=== PATIENT | female | born 1965 | race Caucasian/White ===

== ENCOUNTER 2022-09-18 12:47 | Observation (INO) | payer BC, MEDICAID, OTHER ==
[~2022-09-18] VITALS: Ht 172.7 cm; Wt 94.2 kg
[2022-09-18 13:43] LABS: BASO # 0.1 10^3/uL (0.0-0.2); BASO % 0.8 % (0.0-1.0); EOS # 0.1 10^3/uL (0.0-0.5); EOS % 0.9 % (0.0-3.0); HEMATOCRIT 38.6 % (36.0-47.0); HEMOGLOBIN 12.8 g/dl (12.0-15.5); LYMPH # 3.8 10^3/uL (1.5-5.0); LYMPH % 32.8 % (24.0-44.0); MEAN CORPUSCULAR HGB CONC 33.2 g/dl (32.0-36.5); MEAN CORPUSCULAR VOLUME 84.5 fl (80.0-96.0); MONO # 0.6 10^3/uL (0.0-0.8); MONO % 5.5 % (2.0-8.0); NEUTROPHILS # 6.9 10^3/uL (1.5-8.5); NEUTROPHILS % 59.7 % (36.0-66.0); RED BLOOD COUNT 4.57 10^6/uL (4.00-5.40); WHITE BLOOD COUNT 11.6 10^3/uL (4.0-10.0)
[2022-09-18] MEDS ORDERED: ISOVUE-370 76% 100ML VIAL As Ordered ONE (13:46)
[2022-09-18 13:53] LABS: INR 0.9; PROTHROMBIN TIME 12.3 SECONDS (12.5-14.5)
[2022-09-18] MEDS ORDERED: ASPIRIN 81MG CHEW TABLET PO ONE (14:25)
[2022-09-18] MEDS ORDERED: ATORVASTATIN 20 MG TAB PO ONE (14:25)
[2022-09-18] MEDS ORDERED: NS 1,000 ML IV ONE (14:25)
[2022-09-18] MEDS ORDERED: ATOR1TAB21 PO (15:00)
[2022-09-18] MEDS ORDERED: ASPI81TA26 PO (15:00)
[2022-09-18] MEDS ORDERED: HOME MED LIST COMPLETE! XX SCH (15:00)
[2022-09-18] MEDS ORDERED: METO1TAB87 PO (15:00)
[2022-09-18] MEDS ORDERED: CLOPIDOGREL 75 MG TAB PO ONE (16:05)
[2022-09-18 17:23] VITALS: BP 158/80; TEMP 97.4; O2SAT 100
[2022-09-18] MEDS: NS 1,000 ML IV SCH (17:47)
[2022-09-18 19:04] LABS: ALBUMIN 3.8 G/DL (3.2-5.2); ALKALINE PHOSPHATASE 103 U/L (46-116); ALT/SGPT 21 U/L (7.0-40); AST/SGOT 16 U/L (<34); BILIRUBIN,DIRECT 0.2 MG/DL (<0.4); BILIRUBIN,TOTAL 0.5 MG/DL (0.3-1.2); BLOOD UREA NITROGEN 11 MG/DL (9-23); CALCIUM LEVEL 8.7 MG/DL (8.5-10.1); CARBON DIOXIDE LEVEL 25 MMOL/L (20-31); CHLORIDE LEVEL 105 MMOL/L (98-107); CREATININE FOR GFR 0.63 MG/DL (0.55-1.30); GLOMERULAR FILTRATION RATE > 60.0 (>51); GLUCOSE, FASTING 94 MG/DL (60-100); POTASSIUM SERUM 4.1 MMOL/L (3.5-5.1); SODIUM LEVEL 138 MMOL/L (136-145); TOTAL PROTEIN 6.8 G/DL (5.7-8.2)
[2022-09-18 19:06] LABS: VITAMIN B12 LEVEL 352 PG/ML (211-911)
[2022-09-18 19:27] LABS: FOLATE 22.89 NG/ML (>5.4)
[2022-09-18] MEDS ORDERED: METOPROLOL TART 12.5 MG PER 1/2 TAB PO PRN (20:30)
[2022-09-18] MEDS ORDERED: OMEPRAZOLE 20MG CAP PO SCH (21:00)
[2022-09-18 21:05] VITALS: BP 153/72; TEMP 97.8; O2SAT 98
[2022-09-18] MEDS: PANTOPRAZOLE 20 MG TAB PO SCH (21:07)
[2022-09-18] MEDS: RAMELTEON 8 MG TAB (ROZEREM) PO PRN (22:10)
[2022-09-18 23:24] LABS: AMPHETAMINES LEVEL URINE NEGATIVE (NEGATIVE); BARBITURATES URINE NEGATIVE (NEGATIVE); BENZODIAZEPINES URINE NEGATIVE (NEGATIVE); COCAINE METABOLITE URINE NEGATIVE (NEGATIVE); METHADONE URINE NEGATIVE (NEGATIVE); OPIATES URINE NEGATIVE (NEGATIVE); PHENCYCLIDINE URINE NEGATIVE (NEGATIVE)
[2022-09-18 23:28] LABS: CANNABINOIDS URINE POSITIVE (NEGATIVE)
[2022-09-19 01:06] VITALS: BP 122/60; TEMP 96.9; O2SAT 95
[2022-09-19] MEDS: NS 1,000 ML IV SCH ×2 (01:36→07:19)
[2022-09-19 03:05] LABS: BLOOD UREA NITROGEN 10 MG/DL (9-23); CALCIUM LEVEL 8.6 MG/DL (8.5-10.1); CARBON DIOXIDE LEVEL 25 MMOL/L (20-31); CHLORIDE LEVEL 112 MMOL/L (98-107); CREATININE FOR GFR 0.63 MG/DL (0.55-1.30); GLOMERULAR FILTRATION RATE > 60.0 (>51); GLUCOSE, FASTING 93 MG/DL (60-100); POTASSIUM SERUM 3.9 MMOL/L (3.5-5.1); SODIUM LEVEL 142 MMOL/L (136-145)
[2022-09-19 04:00] VITALS: BP 126/74; TEMP 96.8; O2SAT 98
[2022-09-19 06:28] LABS: HEMATOCRIT 35.1 % (36.0-47.0); HEMOGLOBIN 11.3 g/dl (12.0-15.5); MEAN CORPUSCULAR HEMOGLOBIN 28.1 pg (27.0-33.0); MEAN CORPUSCULAR HGB CONC 32.2 g/dl (32.0-36.5); MEAN CORPUSCULAR VOLUME 87.3 fl (80.0-96.0); PLATELET COUNT, AUTOMATED 221 10^3/uL (150-450); RED BLOOD COUNT 4.02 10^6/uL (4.00-5.40); WHITE BLOOD COUNT 9.9 10^3/uL (4.0-10.0)
[2022-09-19 06:41] LABS: INR 0.97; PROTHROMBIN TIME 13.1 SECONDS (12.5-14.5)
[2022-09-19 06:56] LABS: CHOLESTEROL LEVEL 126 MG/DL (<200); CHOLESTEROL RISK RATIO 2.52 (<5); LDL CHOLESTEROL 64.2 MG/DL (<100); TRIGLYCERIDES LEVEL 59 MG/DL (<150)
[2022-09-19 07:42] LABS: BLOOD UREA NITROGEN 9 MG/DL (9-23); CALCIUM LEVEL 8.5 MG/DL (8.5-10.1); CARBON DIOXIDE LEVEL 25 MMOL/L (20-31); CHLORIDE LEVEL 112 MMOL/L (98-107); CREATININE FOR GFR 0.64 MG/DL (0.55-1.30); GLOMERULAR FILTRATION RATE > 60.0 (>51); GLUCOSE, FASTING 80 MG/DL (60-100); POTASSIUM SERUM 4.1 MMOL/L (3.5-5.1); SODIUM LEVEL 143 MMOL/L (136-145)
[2022-09-19 08:04] VITALS: BP 143/69; TEMP 97.1; O2SAT 98
[2022-09-19] MEDS: ASPIRIN 81MG CHEW TABLET PO SCH (08:58)
[2022-09-19] MEDS: CLOPIDOGREL 75 MG TAB PO SCH (08:58)
[2022-09-19 11:36] VITALS: BP 145/71; TEMP 97.7; O2SAT 95
[2022-09-19 15:33] LABS: BLOOD UREA NITROGEN 10 MG/DL (9-23); CALCIUM LEVEL 8.4 MG/DL (8.5-10.1); CARBON DIOXIDE LEVEL 26 MMOL/L (20-31); CHLORIDE LEVEL 113 MMOL/L (98-107); CREATININE FOR GFR 0.63 MG/DL (0.55-1.30); GLOMERULAR FILTRATION RATE > 60.0 (>51); GLUCOSE, FASTING 116 MG/DL (60-100); POTASSIUM SERUM 4.1 MMOL/L (3.5-5.1); SODIUM LEVEL 145 MMOL/L (136-145)
[2022-09-19 15:38] VITALS: BP 138/65; TEMP 97.6; O2SAT 97
[2022-09-19] MEDS ORDERED: METO25TA4 PO (17:49)
[2022-09-19] MEDS ORDERED: CLOP75TA2 PO (17:49)
[2022-09-19] MEDS ORDERED: PROT20TA11 PO (17:51)
[2022-09-19] MEDS ORDERED: LIPI80TA PO (17:51)
[2022-09-19] MEDS ORDERED: SELF1KIT MC (18:06)
[2022-09-19 20:00] VITALS: BP 143/82; TEMP 96.4; O2SAT 94
[2022-09-19] MEDS: PANTOPRAZOLE 20 MG TAB PO SCH (20:57)
[2022-09-19] MEDS: RAMELTEON 8 MG TAB (ROZEREM) PO PRN (20:58)
[2022-09-20] VITALS (8 sets, daily range): BP systolic 130–179; BP diastolic 68–100; TEMP 97–97.2; O2SAT 97–100
[2022-09-20] MEDS ORDERED: METOPROLOL TART 25 MG TABLET PO ONE (08:00)
[2022-09-20] MEDS: CLOPIDOGREL 75 MG TAB PO SCH (08:06)
[2022-09-20] MEDS: ASPIRIN 81MG CHEW TABLET PO SCH (08:06)
[2022-09-20] MEDS ORDERED: XANA0.25 PO (09:22)
[2022-09-20] MEDS ORDERED: ISOSORBIDE DIN (ISORDIL) 10MG TAB PO SCH (12:00)
[2022-09-20] MEDS ORDERED: AMLO10TA PO (12:53)
[2022-09-20] MEDS ORDERED: ISOS10TA9 PO (13:48)
[2022-09-20] MEDS ORDERED: HYDR-3363 PO (13:50)
[2022-09-20] MEDS ORDERED: cloNIDine 0.1MG TABLET PO ONE (14:00)
[2022-09-20] MEDS ORDERED: METOPROLOL TART 25 MG TABLET PO SCH (21:00)
[2022-09-21 12:08] LABS: ANTINUCLEAR ANTIBODIES DIRECT Negative (Negative)
[2022-09-24 09:16] LABS: DRVV SCREEN 40.4 SEC
[2022-09-24 09:32] LABS: PTT LUPUS TYPE ANTICOAG SCREEN 1.1 (0-1.2)
[2022-09-27 19:06] LABS: ANCA-ATYPICAL <1:20 titer (Neg:<1:20); ANTI THROMBIN 3 ANTIGEN IMMUNO 73 % (72-124); ANTI THROMBIN 3 FUNCT ACTIVITY 88 % (75-135); ANTINUCLEAR ANTIBODIES DIRECT Negative (Negative); CARDIOLIPIN IGA ANTIBODY <9 APL U/mL (0-11); CARDIOLIPIN IGG ANTIBODY <9 GPL U/mL (0-14); CARDIOLIPIN IGM ANTIBODY <9 MPL U/mL (0-12); CYTOPLASMIC NEUTROP AB ANCA-C <1:20 titer (Neg:<1:20); F8 ACTIVITY FOR F8 PANEL 139 % (56-140); F8 ACTIVITY vWB FOR F8 PANEL 153 % (50-200); F8 ANTIGEN FOR F8 PANEL 195 % (50-200); HOMOCYST(E)INE SERUM 6.5 umol/L (0.0-14.5); PERINUCLEAR AB ANCA-P <1:20 titer (Neg:<1:20); PROTEIN C ANTIGEN 86 % (60-150); PROTEIN S ANTIGEN FREE 95 % (61-136); PROTEIN S ANTIGEN TOTAL 104 % (60-150); SJOGREN'S ANTI SS-A <0.2 AI (0.0-0.9); SJOGREN'S ANTI SS-B <0.2 AI (0.0-0.9)
== END 2022-09-20 16:38 | disposition home or self-care (01) ==
LOC: M ED 12:47 → M ED INP 12:48 → UNDOADMOB 14:46 → M ED INP 14:46 → INTOOBSV 14:46 → ENRESERV 15:33 → M PCU 17:27 → M ED INP 17:27 → M PCU 17:27
PROVIDERS: ADMIT General Practice; ATTEND General Practice
DX: I63.421 Cerebral infarction due to embolism of right anterior cerebral artery (principal); I10 Essential (primary) hypertension; E78.5 Hyperlipidemia, unspecified; Z91.199 Patient's noncompliance with other medical treatment and regimen due to unspecified reason; Z86.73 Personal history of transient ischemic attack (TIA), and cerebral infarction without residual deficits; I36.1 Nonrheumatic tricuspid (valve) insufficiency; F41.9 Anxiety disorder, unspecified; I27.0 Primary pulmonary hypertension; Z79.82 Long term (current) use of aspirin; Z79.899 Other long term (current) drug therapy
CPT/HCPCS: 36415; 70450; 70496; 70498; 70544; 70551; 71045; 80047; 80048; 80061; 80076; 80307; 81002; 81240; 82607; 82746; 83090; 85025; 85027; 85240; 85245; 85246; 85300; 85301; 85302; 85305; 85306; 85610; 85652; 85730; 86037; 86038; 86147; 86431; 87635; 93005; 93041; 93306; 94760; 96361; 96374; 97161; 99285; Q9967

== ENCOUNTER 2022-10-11 14:20 | Emergency (ER) | payer OTHER ==
[~2022-10-11] VITALS: Ht 172.7 cm; Wt 85.3 kg
[~2022-10-11 14:20] MED LIST: AMLO10TA PO; ASPI81TA26 PO; ATOR1TAB21 PO; CLOP75TA2 PO; HYDR-3363 PO; ISOS10TA9 PO; LIPI80TA PO; METO1TAB87 PO; METO25TA4 PO; PROT20TA11 PO; SELF1KIT MC; XANA0.25 PO
[2022-10-11 14:50] LABS: BASO # 0.1 10^3/uL (0.0-0.2); BASO % 0.8 % (0.0-1.0); EOS # 0.1 10^3/uL (0.0-0.5); EOS % 1.5 % (0.0-3.0); HEMATOCRIT 41.6 % (36.0-47.0); HEMOGLOBIN 13.6 g/dl (12.0-15.5); LYMPH # 2.9 10^3/uL (1.5-5.0); LYMPH % 31.1 % (24.0-44.0); MEAN CORPUSCULAR HEMOGLOBIN 28.2 pg (27.0-33.0); MEAN CORPUSCULAR HGB CONC 32.7 g/dl (32.0-36.5); MEAN CORPUSCULAR VOLUME 86.1 fl (80.0-96.0); MONO # 0.6 10^3/uL (0.0-0.8); MONO % 6.1 % (2.0-8.0); NEUTROPHILS # 5.7 10^3/uL (1.5-8.5); NEUTROPHILS % 60.3 % (36.0-66.0); PLATELET COUNT, AUTOMATED 241 10^3/uL (150-450); RED BLOOD COUNT 4.83 10^6/uL (4.00-5.40); WHITE BLOOD COUNT 9.4 10^3/uL (4.0-10.0)
[2022-10-11 15:24] LABS: CK-MB VALUE MASS 1.4 NG/ML (<3.6)
[2022-10-11 15:25] LABS: BLOOD UREA NITROGEN 11 MG/DL (9-23); CALCIUM LEVEL 9.3 MG/DL (8.5-10.1); CARBON DIOXIDE LEVEL 32 MMOL/L (20-31); CHLORIDE LEVEL 106 MMOL/L (98-107); CPK CREATINE PHOSPHOKINASE 164 U/L (34-145); CREATININE FOR GFR 0.72 MG/DL (0.55-1.30); GLOMERULAR FILTRATION RATE > 60.0 (>51); GLUCOSE, FASTING 107 MG/DL (60-100); MB/CK RELATIVE INDEX 0.85 (< OR =4); POTASSIUM SERUM 4.1 MMOL/L (3.5-5.1); SODIUM LEVEL 143 MMOL/L (136-145)
[2022-10-11 19:50] LABS: INR 0.95; PROTHROMBIN TIME 12.9 SECONDS (12.5-14.5)
[2022-10-11 19:51] LABS: PARTIAL THROMBOPLASTIN TIME 27.5 SECONDS (24.8-34.2)
[2022-10-11 19:53] LABS: D-DIMER QUANT 369.18 ng/ml (<500)
[2022-10-11 20:08] LABS: MB/CK RELATIVE INDEX 0.75 (< OR =4)
[2022-10-11 20:10] LABS: FREE T4 1.23 NG/DL (0.89-1.76); THYROID STIMULATING HORMONE 1.324 uIU/ML (0.55-4.78)
[2022-10-11 21:32] VITALS: BP 144/70; TEMP 98
[2022-10-11 21:35] VITALS: O2SAT 94
== END 2022-10-11 22:00 | disposition home or self-care (01) ==
LOC: M ED 14:20
DX: R07.9 Chest pain, unspecified (principal); F41.9 Anxiety disorder, unspecified; R00.1 Bradycardia, unspecified; I10 Essential (primary) hypertension; F10.10 Alcohol abuse, uncomplicated; Z86.79 Personal history of other diseases of the circulatory system; Z79.02 Long term (current) use of antithrombotics/antiplatelets; Z79.899 Other long term (current) drug therapy

== ENCOUNTER → 2022-11-20 | Outpatient (CLI) | payer OTHER | LOC: M RAD 10:58 | PROVIDERS: ATTEND Nurse Practitioner Family | DX: I63.9 Cerebral infarction, unspecified (principal); I67.1 Cerebral aneurysm, nonruptured ==

== ENCOUNTER → 2023-10-15 | Outpatient (CLI) | payer OTHER | LOC: M RAD 10:29 | PROVIDERS: ATTEND Student in an Organized Health Care Education/Training Program | DX: I67.1 Cerebral aneurysm, nonruptured (principal) ==